=== PATIENT | female | born 1995 | race American Indian/Alaskan Native ===

== ENCOUNTER 2016-11-06 21:00 | Emergency (ER) | payer BC ==
[2016-11-06 22:26] LABS: Basophils % (Auto) 0.5 % (0.0-1.8); Eosinophils % (Auto) 1.4 % (0.0-4.3); Hematocrit 40.8 % (30.3-42.9); Hemoglobin 13.7 gm/dl (10.1-14.3); Mean Corpuscular HGB Conc 34 % (30-34); Mean Corpuscular Hemoglobin 32 pg (28-32); Mean Corpuscular Volume 96 fl (79-97); Platelet Count 203 K/mm3 (140-440); Red Blood Count 4.27 M/mm3 (3.65-5.03); Red Cell Distribution Width 12.2 % (13.2-15.2); White Blood Count 6.2 K/mm3 (4.5-11.0)
[2016-11-06 22:33] LABS: Bilirubin,Urine NEG (Negative); Blood,Urine MOD (Negative); Ketones,Urine NEG (Negative); Leukocyte Esterase,Urine NEG (Negative); Mucus,Urine FEW /HPF; Nitrite,Urine NEG (Negative); Protein,Urine <15 mg/dL mg/dL (Negative); Urobilinogen,Urine < 2.0 mg/dL (<2.0)
[2016-11-06 22:38] LABS: Alanine Aminotransferase 12 units/L (7-56); Albumin 4.1 g/dL (3.9-5); Albumin/Globulin Ratio 1.2 %; Alkaline Phosphatase 36 units/L (35-129); Anion Gap 18 mmol/L; BUN/Creatinine Ratio 8.75; Blood Urea Nitrogen 7 mg/dL (7-17); Calcium 8.8 mg/dL (8.4-10.2); Carbon Dioxide 23 mmol/L (22-30); Chloride 103.1 mmol/L (98-107); Glucose 86 mg/dL (65-100); Lipase 43 units/L (13-60); Potassium 3.4 mmol/L (3.6-5.0); Sodium 141 mmol/L (137-145); Total Protein 7.4 g/dL (6.3-8.2)
--- NOTE | 2016-11-06 23:52 | Emergency Department Report ---
HPI - General Chief Complaint: Vaginal Bleeding Time Seen by Provider: 11/06/16 23:36 - HPI HPI: This is a 21-year-old -[place] female presents to the emergency department from home with complaint of abnormal and heavy vaginal bleeding. Bleeding started on October 23 has been going since. Last normal menstrual cycle was October 06. The patient has an DOUBLE BACKER at [facility] and says she has an appointment coming up this . The patient recently started control at the beginning of October in order to try and help with normal menstrual cycle she has been having and she usually has a 9 day cycle more recently. Patient has been having some lower abdominal and/or pelvic discomfort for the past week. She denies any vaginal discharge, dysuria, back pain, fever. She denies any past medical history. She has not taken anything for symptoms prior to presentation. ED Past Medical Hx - Past Medical History Previous Medical History?: No - Surgical History Past Surgical History?: No - Social History Smoking Status: Never Smoker Substance Use Type: None ED Review of Systems ROS: Stated complaint: HEAVY VAGINAL BLEEDING, FATIUGE Other details as noted in HPI Comment: All other systems reviewed and negative Constitutional: denies: chills, fever Eyes: denies: eye pain, eye discharge, vision change ENT: denies: ear pain, throat pain Respiratory: denies: cough, shortness of breath, wheezing Cardiovascular: denies: chest pain, palpitations Gastrointestinal: abdominal pain. denies: nausea, vomiting Genitourinary: other (vaginal bleeding). denies: urgency, dysuria, discharge Musculoskeletal: denies: back pain, joint swelling, arthralgia Skin: denies: rash, lesions Neurological: denies: headache, weakness, paresthesias Physical Exam - Physical Exam Vital Signs: Vital Signs 11/06/16 21:30 Temperature 98.3 F Pulse Rate 65 Respiratory 16 Rate Blood Pressure 109/74 [Right] O2 Sat by Pulse 100 Oximetry Physical Exam: GENERAL: The patient is well-developed well-nourished. HEENT: Normocephalic. Atraumatic. Extraocular motions are intact. Patient has moist mucous membranes. Pupils equal reactive to light bilaterally. NECK: Supple. Trachea is midline. CHEST/LUNGS: Clear to auscultation. There is no respiratory distress noted. HEART/CARDIOVASCULAR: Regular. There is no tachycardia. There is no gallop rub or murmur. ABDOMEN: Abdomen is soft, nontender. Patient has normal bowel sounds. There is no abdominal distention. SKIN: Skin is warm and dry. NEURO: The patient is awake, alert, and oriented. The patient is cooperative. The patient has no focal neurologic deficits. The patient has normal speech. MUSCULOSKELETAL: There is no tenderness or deformity. There is no limitation range of motion. There is no evidence of acute injury. : Deferred ED Course Vital Signs 11/06/16 21:30 Temperature 98.3 F Pulse Rate 65 Respiratory 16 Rate Blood Pressure 109/74 [Right] O2 Sat by Pulse 100 Oximetry ED Medical Decision Making - Lab Data Result diagrams: 11/06/16 21:38 11/06/16 21:38 - Radiology Data Radiology results: report reviewed Transabdominal/pelvic ultrasound shows a normal examination. - Medical Decision Making 21-year-old female presents to the emergency department with complaint of prolonged vaginal bleeding and some mild lower abdominal/pelvic discomfort. Patient's labs are unremarkable and do not show any source or etiology of her symptoms. There is also not any significant anemia due to her bleeding. Patient deferred/refused a pelvic examination. The patient was going to have a full pelvic ultrasound including Doppler to look for the source of her bleeding and source of her discomfort but she would not allow any transvaginal probes. The abdominal ultrasound portion was done and was a normal examination. The patient understands that without a proper pelvic examination or transvaginal ultrasound that it is hard to do a full evaluation of her symptoms. However she is not in any acute distress. Her abdomen and pelvis does not appear to be toxic or rigid. She has a follow-up appointment with her DOUBLE BACKER coming up next week. She has been encouraged to get in sooner but also to return to the ER with any worsening of her symptoms or any acute distress. - Differential Diagnosis dysfunctional uterine bleeding, menorrhagia, fibroids, Critical Care Time: No Critical care attestation.: If time is entered above; I have spent that time in minutes in the direct care of this critically ill patient, excluding procedure time. ED Disposition Clinical Impression: Dysfunctional uterine bleeding Menorrhagia Qualifiers: Menorrahagia type: with irregular cycle Qualified Code(s): N92.1 - Excessive and frequent menstruation with irregular cycle Disposition: DISCHARGED TO HOME OR SELFCARE Is pt being admited?: No Condition: Stable Instructions: Dysfunctional Uterine Bleeding (ED), Menorrhagia (ED) Additional Instructions: Please follow-up with your DOUBLE BACKER in the next few days. Return to the emergency department with any worsening of your symptoms or any acute distress. Referrals: PRIMARY CARE,MD [Primary Care Provider] - 3-5 Days Time of Disposition: 00:45
--- NOTE | 2016-11-07 00:41 | Ultrasound Report ---
FINAL REPORT PROCEDURE: US PELVIS DUPLEX DOPPLER COMP TECHNIQUE: Real-time transabdominal sonography in multiple planes of pelvis was performed with image documentation. This examination was performed without Doppler. Vascular abnormalities, including ovarian torsion, will not be detectable without Doppler evaluation. CPT 87394 HISTORY: pelvic pain, heavy bleeding COMPARISON: No prior studies are available for comparison. FINDINGS: UTERUS Size: 7 x 3.8 x 4.4 cm. Endometrial thickness: 5 mm. Orientation: anteverted. Cervix: Normal. Fibroids/masses: None. RIGHT Ovary: 2.2 x 1.4 x 1.6 cm. Appearance: Normal. LEFT Ovary: 2.2 x 1.5 x 2 cm. Appearance: Normal. Pelvic fluid: None. Other: None. IMPRESSION: Normal Examination
[2016-11-07 01:05] VITALS: BP 112/74
== END 2016-11-07 01:05 | disposition home or self-care (01) ==
LOC: ED 21:00
DX: N92.1 Excessive and frequent menstruation with irregular cycle (principal)
CPT/HCPCS: 36415; 80053; 81001; 83690; 84703; 85025; 86850; 86900; 86901; 93975

== ENCOUNTER 2018-01-31 01:29 | Emergency (ER) | payer SELFPAY ==
[2018-01-31 01:33] VITALS: BP 123/80
== END 2018-01-31 01:31 | disposition left against medical advice (07) ==
LOC: ED 01:29
DX: R56.9 Unspecified convulsions (principal); Z53.21 Procedure and treatment not carried out due to patient leaving prior to being seen by health care provider